=== PATIENT | female | born 1985 | race Caucasian/White ===

== ENCOUNTER → 2018-02-22 | Emergency (ER) | payer SELFPAY ==
--- NOTE | 2018-02-22 15:22 | NUR ---
PT NOT IN WAITING ROOM X 2.
--- NOTE | 2018-02-22 15:31 | NUR ---
PT STILL NOT IN WAITING ROOM.
== END | disposition home or self-care (01) ==
LOC: ER 15:15
DX: Z53.21 Procedure and treatment not carried out due to patient leaving prior to being seen by health care provider (principal)